=== PATIENT | female | born 1980 | race Caucasian/White ===

== ENCOUNTER → 2017-05-18 | Outpatient (CLI) | payer MEDICAID ==
[~2017-05-18] MED LIST: AMOX500T10 PO; ASPI81TA94 PO; B-12 INJECTION; B1; B6; BIOT10004; CALC-896 PO; CHOL500050 PO; CINN500C12 PO; CIP500 PO; CIPR-344 PO; CLAR-1 PO; CYAN1000 IJ; CYAN1000 IM; DICL-195 PO; DICL100G39 TOP; DICY20TA70 PO; FLUT9.9S; FOLI20CA2 PO; GING1POW MC; HEADACHE MED; HYOS0.1225 PO; IBUP800T37 PO; IRON150C19 PO; KET200 PO; L.AC1CAP6; LEVO50TA86 PO; MELA5TAB21; METR-1 PO; MULT-820 PO; NIT100 PO; NO ROUTINE MEDS; OMEG300C PO; OMEP40CA48 PO; ONDA4TAB PO; OXYC-373 PO; OXYC-865 PO; PANT40TA65 PO; PER PO; PHEN15CA69 PO; PREN-85 PO; PROM-110 PO; PSYL0.5235 PO; SUCR1TAB85 PO; SULF-198 PO; SUMA100T32 PO; TAMS0.4C25 PO; TAMS0.4C70 PO; TETA0.5V12 IM; THIA100T6 PO; THIA250T12 PO; TRAM-420 PO; [UNRECOGNIZED DRUG - CODE] PO
[2017-05-18 09:23] LABS: PLATELET COUNT, AUTOMATED 279 K/uL (150-450)
[2017-05-18 10:53] LABS: LDL CHOLESTEROL 87 mg/dl
== END ==
LOC: LAB 08:46
PROVIDERS: ATTEND Nurse Practitioner Family
DX: E46 Unspecified protein-calorie malnutrition (principal); K91.2 Postsurgical malabsorption, not elsewhere classified; E63.9 Nutritional deficiency, unspecified; Z98.84 Bariatric surgery status
CPT/HCPCS: 36415; 82040; 82247; 82306; 82310; 82374; 82435; 82465; 82565; 82607; 82746; 82947; 83036; 83718; 83970; 84075; 84132; 84155; 84295; 84425; 84443; 84450; 84460; 84478; 84520; 85025

== ENCOUNTER 2017-10-26 15:22 | Emergency (ER) | payer MEDICAID ==
[~2017-10-26 15:22] MED LIST changes: +[UNRECOGNIZED DRUG - REMARK]
--- NOTE | 2017-10-26 15:34 | ER Report ---
History and Physical Time Seen By MD: 15:33 Hx. of Stated Complaint: pt ate lunch and then arounf 1230 started having intense pain throughout abdomen. pt feels nauseous and is dry heaving. pt states she also had a bout of diarrhea. HPI/ROS Pt had turkey meat and lettuce for lunch at noon and immediately afterwards started with abdominal cramping, dry heaving, nausea and diarrhea. Pt denies fevers. Pt states the abdominal pain is severe sharp and crampy. 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 no chest pain. Allergies: Coded Allergies: sumatriptan (Verified Allergy, Intermediate, 03/16/17) adhesive (Verified Allergy, Mild, BLISTERING, 03/16/17) hydrocodone (Verified Adverse Reaction, Mild, VOMITS AND PASSES OUT, 03/16) Home Meds Active Scripts [Dietary Restrictions] No Conflict Check Prov:ADRIAN DEAN APRNP-C 09/13/17 Levothyroxine Sodium (LEVOTHYROXINE SODIUM) 50 Mcg Tablet, 1 TAB PO QDAY, #90 TAB 1 Refill Prov:ADRIAN DEAN APRNP-C 05/27/17 Reported Medications Thiamine Hcl (VITAMIN B-1) 250 Mg Tablet, 1 TAB PO DAILY 04/23/17 Melatonin (Melatonin) 5 Mg Tab.ir.er 03/16/17 Folic Acid (FOLIC ACID) Unknown Strength Capsule, PO, CAPSULE 02/22/17 Psyllium Husk (FIBER) 0.52 Gm Capsule, 0.52 GM PO, CAPSULE 07/02/16 Cinnamon Bark (CINNAMON) 500 Mg Capsule, 500 MG PO, CAPSULE 07/02/16 Shadia Root (SHADIA ROOT) 1 Gm Powder, 1 GM MC 07/02/16 Iron Polysaccharides Complex (POLYSACCHARIDE IRON 150) 150 Mg Capsule, 150 MG PO , CAPSULE 07/02/16 Biotin (Biotin) 1,000 Mcg Tab.chew 10/02/15 Calcium Carb&Cit/Mag12/Vit D3 (CALCIUM 500 MG TABLET) 1 Each Tablet, 2 EACH PO 10/02/15 [B-12 Injection] No Conflict Check 10/02/15 Tyler-3 Fatty Acids (FISH OIL) 300 Mg Capsule, 300 MG PO, CAPSULE 11/05/14 Multivitamin (MULTIVITAMINS) 1 Each Tablet, 1 TAB PO DAILY, TAB 5/26/15 Cholecalciferol (Vitamin D3) (VITAMIN D3) 50,000 Unit Capsule, 89136 UNIT PO QWEEK, CAPSULE 08/21/14 Past Medical/Surgical History Pmhx: migraine, sleep apnea, hyothyroid, nephrolithiasis, uri, strep, h pylori Pshx: emilia, gastric bypass Reviewed Nurses Notes: Yes Old Medical Records Reviewed: Yes Hx Smoking: No Smoking Status: Never Smoker Hx Substance Use Disorder: No Hx Alcohol Use: Yes Constitutional Vital Sign - Last 24 Hours 10/26/17 15:27 Temp 97.4 Pulse 64 Resp 22 B/P (MAP) 150/90 Pulse Ox 100 Physical Exam General Appearance: The patient is alert, has no immediate need for airway protection and no signs of toxicity. Eyes: Pupils equal and round no pallor or injection, EOMI ENT: no pharyngeal erythema or exudates, Mucous membranes are moist Respiratory: There are no retractions, lungs are clear to auscultation. Cardiovascular: Regular rate and rhythm. pulses are equal and symmetrical Gastrointestinal: Abdomen is soft and diffusely tender, no masses, bowel sounds normal, no guarding, no rigidity or rebound Neurological: Cranial nerves II-XII grossly intact, no sensory or motor loss Skin: Warm and dry, no rashes. Musculoskeletal: Neck is supple non tender, no vertebral tenderness Extremities are nontender, non swollen and have full range of motion. DIFFERENTIAL DIAGNOSIS: After history and physical exam differential diagnosis was considered for psbo, sbo, cholitis, gastritis, h pylori, pancreatitis Medical Decision Making Data Points Result Diagram: 10/26/17 1540 10/26/17 1540 Laboratory Hematology Test 10/26/17 15:40 Red Blood Count 4.37 M/uL (4.17-5.56) Mean Corpuscular Volume 90.3 fL (80.0-96.0) Mean Corpuscular Hemoglobin 30.8 pg (26.0-33.0) Mean Corpuscular Hemoglobin Concent 34.1 g/dL (32.0-36.0) Red Cell Distribution Width 13.7 % (11.5-14.5) Mean Platelet Volume 8.7 fL (7.2-11.1) Neutrophils (%) (Auto) 81.5 % (39.4-72.5) Lymphocytes (%) (Auto) 13.4 % (17.6-49.6) Monocytes (%) (Auto) 4.0 % (4.1-12.4) Eosinophils (%) (Auto) 0.4 % (0.4-6.7) Basophils (%) (Auto) 0.7 % (0.3-1.4) Nucleated RBC Relative Count (auto) 0.0 /100WBC Neutrophils # (Auto) 8.7 K/uL (2.0-7.4) Lymphocytes # (Auto) 1.4 K/uL (1.3-3.6) Monocytes # (Auto) 0.4 K/uL (0.3-1.0) Eosinophils # (Auto) 0.0 K/uL (0.0-0.5) Basophils # (Auto) 0.1 K/uL (0.0-0.1) Nucleated RBC Absolute Count (auto) 0.00 K/uL Sodium Level 140 mmol/L (137-145) Potassium Level 3.8 mmol/L (3.5-5.0) Chloride Level 105 mmol/L (98-107) Carbon Dioxide Level 20 mmol/L (22-31) Blood Urea Nitrogen 11 mg/dl (7-18) Creatinine 0.70 mg/dl (0.52-1.04) Glomerular Filtration Rate Calc > 60.0 Random Glucose 99 mg/dl (75-110) Calcium Level 9.8 mg/dl (8.4-10.2) Total Bilirubin 0.3 mg/dl (0.2-1.3) Aspartate Amino Transf (AST/SGOT) 32 U/L (0-35) Alanine Aminotransferase (ALT/SGPT) 47 U/L (0-56) Alkaline Phosphatase 40 U/L (0-126) Total Protein 8.1 g/dl (6.3-8.2) Albumin 4.9 g/dl (3.5-5.0) Lipase 191 U/L (23-300) Human Chorionic Gonadotropin, Qual Negative (NEGATIVE) Helicobacter pylori IgG Antibody Negative (NEGATIVE) Chemistry Test 10/26/17 15:40 White Blood Count 10.7 k/uL (4.5-11.0) Red Blood Count 4.37 M/uL (4.17-5.56) Hemoglobin 13.5 g/dL (12.0-16.0) Hematocrit 39.5 % (34.0-47.0) Mean Corpuscular Volume 90.3 fL (80.0-96.0) Mean Corpuscular Hemoglobin 30.8 pg (26.0-33.0) Mean Corpuscular Hemoglobin Concent 34.1 g/dL (32.0-36.0) Red Cell Distribution Width 13.7 % (11.5-14.5) Platelet Count 276 K/uL (150-450) Mean Platelet Volume 8.7 fL (7.2-11.1) Neutrophils (%) (Auto) 81.5 % (39.4-72.5) Lymphocytes (%) (Auto) 13.4 % (17.6-49.6) Monocytes (%) (Auto) 4.0 % (4.1-12.4) Eosinophils (%) (Auto) 0.4 % (0.4-6.7) Basophils (%) (Auto) 0.7 % (0.3-1.4) Nucleated RBC Relative Count (auto) 0.0 /100WBC Neutrophils # (Auto) 8.7 K/uL (2.0-7.4) Lymphocytes # (Auto) 1.4 K/uL (1.3-3.6) Monocytes # (Auto) 0.4 K/uL (0.3-1.0) Eosinophils # (Auto) 0.0 K/uL (0.0-0.5) Basophils # (Auto) 0.1 K/uL (0.0-0.1) Nucleated RBC Absolute Count (auto) 0.00 K/uL Glomerular Filtration Rate Calc > 60.0 Calcium Level 9.8 mg/dl (8.4-10.2) Total Bilirubin 0.3 mg/dl (0.2-1.3) Aspartate Amino Transf (AST/SGOT) 32 U/L (0-35) Alanine Aminotransferase (ALT/SGPT) 47 U/L (0-56) Alkaline Phosphatase 40 U/L (0-126) Total Protein 8.1 g/dl (6.3-8.2) Albumin 4.9 g/dl (3.5-5.0) Lipase 191 U/L (23-300) Human Chorionic Gonadotropin, Qual Negative (NEGATIVE) Helicobacter pylori IgG Antibody Negative (NEGATIVE) EKG/Imaging Imaging ileus ED Course/Re-evaluation Clinical Indication for ER IV: Hydration, IV Access ED Course 10/26/2017 4:40:00 pm Pts labs jon stable. Pts nausea improved. Pt still feels some abdominal diffuse "pressure" but its improved. awaiting ct results. 10/26/2017 5:43:[address] is suggestive of ileus. I reviewed images with Dr. rodriguez, surgeon senior health consultant, who recommends clear liquid diet for 24 hours and advance to bland as tolerated. Pt feels comfortable with [facility] plan of going home. Did offer admission but would like to try to rest at home. Decision to Disposition Date: Oct 26, 2017 Decision to Disposition Time: 17:44 Depart Departure Latest Vital Signs Vital Signs Date Time Temp Pulse Resp B/P (MAP) Pulse Ox O2 Delivery O2 Flow Rate FiO2 10/26/17 15:27 97.4 64 22 150/90 100 Impression: Primary Impression: Enteritis Additional Impressions: Abdominal pain Ileus Condition: Improved Disposition: HOME OR SELF-CARE Referrals: ADRIAN DEAN APRN BLOOD DONOR UNIT ASSISTANT-C (PCP) 2 Days JOSÉ MIGUEL RODRIGUEZ MD New Scripts Ondansetron (ZOFRAN ODT) 4 Mg Tab.rapdis 4 MG PO Q6-8H Y for NAUSEA/VOMITING, #15 TAB.BRIEN Prov: SUHAILORA,ADIS V DO 10/26/17 Dicyclomine Hcl (DICYCLOMINE HCL) 10 Mg Capsule 10 MG PO Q6H Y for CRAMPING, #21 CAPSULE Prov: LAURORA,ADIS V DO 10/26/17 Oxycodone Hcl/Acetaminophen (OXYCODONE-ACETAMINOPHEN 5-325) 1 Each Tablet 1 EACH PO Q4-6H Y for PAIN, #10 TAB Prov: LAURORA,ADIS V DO 10/26/17 Patient Instructions: Ileus (GEN) Additional Instructions: Your labs today were stable. Your cat scan today shows an ileus. Recommend bowel rest. Clear liquid diet for next 24 hours (water, jello, broth) then advance as tolerated. Follow up with Dr. Rodriguez. Return if symtoms worsen. Zofran one every 6 hours as needed for nausea. perocet one every 6 hours as needed for severe pain. Bentyl one every 6 hours as needed for abdominal cramping. Problem Qualifiers Additional Impressions: Abdominal pain Abdominal location: generalized Qualified Codes: R10.84 - Generalized abdominal pain ADIS TRAN DO Oct 26, 2017 15:34
[2017-10-26] MEDS ORDERED: ONDANSETRON 4 MG/2 ML VIAL IVP ONE (15:35)
[2017-10-26] MEDS ORDERED: NS(*) 0.9% 1000 ML BAG 1,000 ML IR ONE (15:35)
[2017-10-26] MEDS ORDERED: MORPHINE 4 MG/ML SDV IVP ONE (15:40)
[2017-10-26] MEDS ORDERED: PANTOPRAZOLE SOD 40 MG IV VIAL IVP ONE (15:40)
[2017-10-26 15:56] LABS: PLATELET COUNT, AUTOMATED 276 K/uL (150-450)
[2017-10-26] MEDS ORDERED: IOPAMIDOL 76% 100 ML INFUS BTL 100 ML ONE (15:59)
--- NOTE | 2017-10-26 17:18 | RADIOLOGY IMAGING REPORT ---
FACILITY: [facility] PATIENT NAME: Darleen Campos : 1980 MR: [id number] V: [id number] EXAM DATE: ORDERING PHYSICIAN: ADIS TRAN TECHNOLOGIST: Location: [facility] - [place], [place] Patient: Darleen Campos : 1980 Visit/Account:[id number] Date of Sevice: 10/26/2017 EXAMINATION: CT abdomen and pelvis with IV contrast HISTORY: Abdominal pain. History of gastric bypass. TECHNIQUE: Axial CT images of the abdomen and pelvis were obtained with IV contrast, with coronal a nd sagittal 2D reconstructed images. One of the following dose optimization techniques was utilized in the performance of this exam: Autom ated exposure control; adjustment of the mA and/or kV according to the patient's size; or use of an i terative reconstruction technique. Specific details can be referenced in the facility's radiology C T exam operational policy. Contrast: 75 mL of IV [id number]. COMPARISON: 03/11/2017. FINDINGS: Liver: Negative. Gallbladder and bile ducts: Cholecystectomy. No bile duct dilatation. Spleen: Negative. Pancreas: Negative. Adrenal glands: Negative. Kidneys: Negative. No hydronephrosis or urinary calculi. Bowel and peritoneum: There is dilatation of the right and transverse colon, containing liquid stool and air-fluid levels. The colon measures 10.5 cm at the cecum, 6 cm at the hepatic flexure, 6.5 cm a long the mid transverse colon. The left colon is air-filled and normal in caliber measuring 3.8 cm. A ir extends distally to the rectum, without evidence of any mechanical cause of obstruction. No coloni c wall thickening. There is additional mild dilatation of small bowel loops in the lower abdomen and pelvis, with air-fluid levels. Surgical changes of gastric bypass. The appendix is visualized and is retrocecal in position, located posteriorly to the distended cecum and right colon. The appendix measures slightly larger at 8 mm, but is partially air-filled and witho ut any definite wall thickening. There is a small sliver of free fluid adjacent to the posterior aspe ct of the right colon, partially abutting the appendix. Trace amount of free fluid in the pelvis. No free intraperitoneal air. Pelvic structures: Negative. Lymph node assessment: Negative. Vessels: Negative. Musculoskeletal: Negative. Body wall: Negative. Lung bases: Negative. IMPRESSION: 1. There is dilatation of the right and transverse colon containing air and liquid stool. There is ad ditional air present throughout the nondilated left colon, with air extending distally to the rectum. No evidence of any mechanical cause of obstruction. There is additional mild dilatation of small bow el loops in the lower abdomen and pelvis with air-fluid levels. CT appearance favors an ileus which c ould relate to an underlying enteritis. 2. The retrocecal appendix is enlarged by size criteria but is air-filled and without definite wall t hickening. A primary appendicitis is considered unlikely and mild dilatation may relate to a generali zed ileus. Correlate clinically. 3. Trace amount of nonspecific free fluid along the right paracolic gutter. 4. Surgical changes of gastric bypass, with an unremarkable CT appearance. Prior cholecystectomy. Report Dictated By: Jesus Alonso MD at 10/26/2017 4:46 PM Report E-Signed By: Jesus Alonso MD at 10/26/2017 5:14 PM WSN:[id number]
[2017-10-26] MEDS ORDERED: DICYCLOMINE HCL 10 MG CAP PO ONE (17:25)
[2017-10-26] MEDS ORDERED: OXYC-373 PO (17:48)
[2017-10-26] MEDS ORDERED: DICY10CA11 PO (17:48)
[2017-10-26] MEDS ORDERED: ONDA4TAB PO (17:51)
[2017-10-26 18:00] VITALS: BP 121/78
== END 2017-10-26 18:09 | disposition home or self-care (01) ==
LOC: ER 15:31
DX: K52.9 Noninfective gastroenteritis and colitis, unspecified (principal); K56.7 Ileus, unspecified
CPT/HCPCS: 74177; 83690; 84443; 84703; 85025; 86677; 96361; 96374; 96375; 99284; C9113; J2270; J2405; J7030; Q9967; 82040; 82247; 82310; 82374; 82435; 82565; 82947; 84075; 84132; 84155; 84295; 84450; 84460; 84520

== ENCOUNTER 2017-10-29 13:11 | Emergency (ER) | payer MEDICAID ==
[~2017-10-29 13:11] MED LIST changes: +DICY10CA11 PO
[2017-10-29 14:57] LABS: PLATELET COUNT, AUTOMATED 217 K/uL (150-450)
[2017-10-29] MEDS ORDERED: ONDANSETRON 4 MG/2 ML VIAL IVP ONE (15:45)
[2017-10-29] MEDS ORDERED: NS(*) 0.9% 1000 ML BAG 1,000 ML IV ONE (15:45)
[2017-10-29] MEDS ORDERED: IOPAMIDOL 76% 100 ML INFUS BTL 100 ML ONE (15:59)
[2017-10-29] MEDS ORDERED: DIATRIZOATE MEGL/DIATRIZOA SOD 367 MG/ML SOLN ONE (16:09)
[2017-10-29] MEDS ORDERED: MORPHINE 4 MG/ML SDV IVP ONE (16:40)
--- NOTE | 2017-10-29 17:49 | ER Report ---
History and Physical Time Seen By MD: 13:20 Hx. of Stated Complaint: DIFFUSE ABDOMINAL PAIN, NO BM SINCE WEDNESDAY (ERAN PEDRAZA MD) HPI/ROS 37-year-old female with a history of gastric bypass surgery 4 years ago. She presented to the emergency department earlier this week complaining of mid epigastric abdominal pain and nausea and vomiting. A CT scan was obtained at that time which showed a possible ileus. The recommendation was to place her on a clear liquid diet and advance as tolerated. The patient states she has been following instructions but her pain has worsened and now she is unable to take any by mouth. She denies fever chills. She states that when she had H. pylori at 1. she had similar pain but states that this pain is worse and also more diffuse in her abdomen. She says was a cholecystectomy. No hematemesis or hematochezia. She has no other complaints. Remainder of the 14 system rev: Yes (ERAN PEDRAZA MD) Allergies: Coded Allergies: sumatriptan (Verified Allergy, Intermediate, 03/16/17) adhesive (Verified Allergy, Mild, BLISTERING, 03/16/17) hydrocodone (Verified Adverse Reaction, Mild, VOMITS AND PASSES OUT, 03/16) Home Meds Active Scripts Promethazine Hcl (PROMETHAZINE HCL) 25 Mg Tablet, 25 MG PO Q8H Y for NAUSEA/ VOMITING, #20 TAB 0 Refills Prov:FELICITAS CUI MD 10/29/17 Oxycodone Hcl/Acetaminophen (PERCOCET 5-325 MG TABLET) 1 Each Tablet, 1 EACH PO Q4H Y for PAIN, #16 TAB 0 Refills Prov:FELICITAS CUI MD 10/29/17 Dicyclomine Hcl (DICYCLOMINE HCL) 10 Mg Capsule, 10 MG PO Q6H Y for CRAMPING, # 21 CAPSULE Prov:ADIS TRAN V DO 10/26/17 Oxycodone Hcl/Acetaminophen (OXYCODONE-ACETAMINOPHEN 5-325) 1 Each Tablet, 1 EACH PO Q4-6H Y for PAIN, #10 TAB Prov:ADIS TRAN DO 10/26/17 [Dietary Restrictions] No Conflict Check Prov:ADRIAN DEAN APRN MATERIALS SCHEDULER-C 09/13/17 Levothyroxine Sodium (LEVOTHYROXINE SODIUM) 50 Mcg Tablet, 1 TAB PO QDAY, #90 TAB 1 Refill Prov:JERMAINEADRIAN SHEILA MATERIALS SCHEDULER-C 05/27/17 Reported Medications Thiamine Hcl (VITAMIN B-1) 250 Mg Tablet, 1 TAB PO DAILY 04/23/17 Melatonin (Melatonin) 5 Mg Tab.ir.er 03/16/17 Folic Acid (FOLIC ACID) Unknown Strength Capsule, PO, CAPSULE 02/22/17 Psyllium Husk (FIBER) 0.52 Gm Capsule, 0.52 GM PO, CAPSULE 07/02/16 Cinnamon Bark (CINNAMON) 500 Mg Capsule, 500 MG PO, CAPSULE 07/02/16 Shadia Root (SHADIA ROOT) 1 Gm Powder, 1 GM MC 07/02/16 Iron Polysaccharides Complex (POLYSACCHARIDE IRON 150) 150 Mg Capsule, 150 MG PO , CAPSULE 07/02/16 Biotin (Biotin) 1,000 Mcg Tab.chew 10/02/15 Calcium Carb&Cit/Mag12/Vit D3 (CALCIUM 500 MG TABLET) 1 Each Tablet, 2 EACH PO 10/02/15 [B-12 Injection] No Conflict Check 10/02/15 [place]-3 Fatty Acids (FISH OIL) 300 Mg Capsule, 300 MG PO, CAPSULE 11/05/14 Multivitamin (MULTIVITAMINS) 1 Each Tablet, 1 TAB PO DAILY, TAB 08/21/14 Cholecalciferol (Vitamin D3) (VITAMIN D3) 50,000 Unit Capsule, 81287 UNIT PO QWEEK, CAPSULE 08/21/14 Discontinued Scripts Ondansetron (ZOFRAN ODT) 4 Mg Tab.rapdis, 4 MG PO Q6-8H Y for NAUSEA/VOMITING, # 15 TAB.BRIEN Prov:ADIS TRAN DO 10/26/17 Reviewed Nurses Notes: Yes Old Medical Records Reviewed: Yes (ERAN PEDRAZA MD) Hx Smoking: No Smoking Status: Never Smoker Hx Substance Use Disorder: No Hx Alcohol Use: Yes (ERAN PEDRAZA MD) Constitutional Vital Sign - Last 24 Hours 10/29/17 10/29/17 10/29/17 10/29/17 13:19 13:22 13:26 13:30 Temp 97.6 Pulse 56 56 Resp 16 B/P (MAP) 129/85 129/85 (100) 106/70 (82) Pulse Ox 95 93 O2 Delivery Room Air 10/29/17 10/29/17 10/29/17 10/29/17 13:41 13:56 14:00 14:11 Pulse 58 59 58 B/P (MAP) 114/78 (90) Pulse Ox 93 93 92 10/29/17 10/29/17 10/29/17 10/29/17 14:26 14:30 14:41 14:56 Pulse 58 ? B/P (MAP) 115/83 (94) Pulse Ox 94 10/29/17 10/29/17 10/29/17 10/29/17 15:00 15:15 15:30 15:45 Pulse ? B/P (MAP) ???/??? (5) ???/??? (1664) 10/29/17 10/29/17 10/29/17 10/29/17 15:46 16:00 16:15 16:30 Pulse 47 53 49 B/P (MAP) 110/66 (81) 135/89 (104) 135/75 (95) Pulse Ox 95 87 97 10/29/17 10/29/17 10/29/17 10/29/17 16:45 17:00 17:03 17:15 Pulse ??? 50 52 B/P (MAP) 122/76 (91) Pulse Ox 93 95 91 10/29/17 10/29/17 10/29/17 10/29/17 17:30 17:45 18:00 18:15 Pulse ??? 51 48 54 B/P (MAP) ???/??? (1665) 114/73 (87) Pulse Ox 98 93 90 10/29/17 10/29/17 10/29/17 18:30 18:45 19:00 Pulse 51 54 52 B/P (MAP) 117/77 (90) 114/76 (89) Pulse Ox 92 91 92 (FELICITAS CUI MD) Physical Exam General Appearance: The patient is alert, has no immediate need for airway protection and no current signs of toxicity. Eyes: Pupils equal and round no injection. Respiratory: Chest is non tender, lungs are clear to auscultation. Cardiac: regular rate and rhythm Gastrointestinal: Abdomen is soft with TTP of the midepigastric, RUQ and LUQ regions Neck: Neck is supple and non tender. Extremities have full range of motion and are non tender. Skin: No rashes or lesions. DIFFERENTIAL DIAGNOSIS: After history and physical exam differential diagnosis was considered for abdominal pain including but not limited to appendicitis, competitions of gastric bypass surgery, gastritis and urinary tract infection. (ERAN PEDRAZA MD) Medical Decision Making Data Points Result Diagram: 10/29/17 1442 10/29/17 1442 Laboratory Hematology Test 10/29/17 13:20 10/29/17 14:42 Urine Color Straw Urine Clarity Clear Urine pH 7.0 pH (4.8-9.5) Urine Specific [place] 1.003 Urine Protein Negative mg/dL (NEGATIVE) Urine Glucose (UA) Negative mg/dL (NEGATIVE) Urine Ketones Negative mg/dL (NEGATIVE) Urine Blood Large (NEGATIVE) Urine Nitrite Negative (NEGATIVE) Urine Bilirubin Negative (NEGATIVE) Urine Urobilinogen Negative mg/dL (0.2-1.9) Urine Leukocyte Esterase Negative (NEGATIVE) Urine RBC 10 /HPF (0-2/HPF) Urine WBC 2 /HPF (0-5/HPF) Urine Squamous Epithelial Cells Few /LPF (</=FEW) Urine Bacteria Negative /HPF (NONE-FEW) Urine Mucus None /HPF (NONE-FEW) Red Blood Count 3.58 M/uL (4.17-5.56) Mean Corpuscular Volume 90.9 fL (80.0-96.0) Mean Corpuscular Hemoglobin 30.9 pg (26.0-33.0) Mean Corpuscular Hemoglobin Concent 34.0 g/dL (32.0-36.0) Red Cell Distribution Width 13.7 % (11.5-14.5) Mean Platelet Volume 8.5 fL (7.2-11.1) Neutrophils (%) (Auto) 51.0 % (39.4-72.5) Lymphocytes (%) (Auto) 39.1 % (17.6-49.6) Monocytes (%) (Auto) 7.1 % (4.1-12.4) Eosinophils (%) (Auto) 1.9 % (0.4-6.7) Basophils (%) (Auto) 0.9 % (0.3-1.4) Nucleated RBC Relative Count (auto) 0.0 /100WBC Neutrophils # (Auto) 2.3 K/uL (2.0-7.4) Lymphocytes # (Auto) 1.8 K/uL (1.3-3.6) Monocytes # (Auto) 0.3 K/uL (0.3-1.0) Eosinophils # (Auto) 0.1 K/uL (0.0-0.5) Basophils # (Auto) 0.0 K/uL (0.0-0.1) Nucleated RBC Absolute Count (auto) 0.00 K/uL Sodium Level 141 mmol/L (137-145) Potassium Level 4.0 mmol/L (3.5-5.0) Chloride Level 108 mmol/L (98-107) Carbon Dioxide Level 25 mmol/L (22-31) Blood Urea Nitrogen 9 mg/dl (7-18) Creatinine 0.60 mg/dl (0.52-1.04) Glomerular Filtration Rate Calc > 60.0 Random Glucose 83 mg/dl (75-110) Calcium Level 8.6 mg/dl (8.4-10.2) Total Bilirubin 0.2 mg/dl (0.2-1.3) Aspartate Amino Transf (AST/SGOT) 33 U/L (0-35) Alanine Aminotransferase (ALT/SGPT) 39 U/L (0-56) Alkaline Phosphatase 34 U/L (0-126) Total Protein 6.2 g/dl (6.3-8.2) Albumin 3.7 g/dl (3.5-5.0) Human Chorionic Gonadotropin, Qual Negative (NEGATIVE) Chemistry Test 10/29/17 13:20 10/29/17 14:42 Urine Color Straw Urine Clarity Clear Urine pH 7.0 pH (4.8-9.5) Urine Specific [place] 1.003 Urine Protein Negative mg/dL (NEGATIVE) Urine Glucose (UA) Negative mg/dL (NEGATIVE) Urine Ketones Negative mg/dL (NEGATIVE) Urine Blood Large (NEGATIVE) Urine Nitrite Negative (NEGATIVE) Urine Bilirubin Negative (NEGATIVE) Urine Urobilinogen Negative mg/dL (0.2-1.9) Urine Leukocyte Esterase Negative (NEGATIVE) Urine RBC 10 /HPF (0-2/HPF) Urine WBC 2 /HPF (0-5/HPF) Urine Squamous Epithelial Cells Few /LPF (</=FEW) Urine Bacteria Negative /HPF (NONE-FEW) Urine Mucus None /HPF (NONE-FEW) White Blood Count 4.6 k/uL (4.5-11.0) Red Blood Count 3.58 M/uL (4.17-5.56) Hemoglobin 11.1 g/dL (12.0-16.0) Hematocrit 32.5 % (34.0-47.0) Mean Corpuscular Volume 90.9 fL (80.0-96.0) Mean Corpuscular Hemoglobin 30.9 pg (26.0-33.0) Mean Corpuscular Hemoglobin Concent 34.0 g/dL (32.0-36.0) Red Cell Distribution Width 13.7 % (11.5-14.5) Platelet Count 217 K/uL (150-450) Mean Platelet Volume 8.5 fL (7.2-11.1) Neutrophils (%) (Auto) 51.0 % (39.4-72.5) Lymphocytes (%) (Auto) 39.1 % (17.6-49.6) Monocytes (%) (Auto) 7.1 % (4.1-12.4) Eosinophils (%) (Auto) 1.9 % (0.4-6.7) Basophils (%) (Auto) 0.9 % (0.3-1.4) Nucleated RBC Relative Count (auto) 0.0 /100WBC Neutrophils # (Auto) 2.3 K/uL (2.0-7.4) Lymphocytes # (Auto) 1.8 K/uL (1.3-3.6) Monocytes # (Auto) 0.3 K/uL (0.3-1.0) Eosinophils # (Auto) 0.1 K/uL (0.0-0.5) Basophils # (Auto) 0.0 K/uL (0.0-0.1) Nucleated RBC Absolute Count (auto) 0.00 K/uL Glomerular Filtration Rate Calc > 60.0 Calcium Level 8.6 mg/dl (8.4-10.2) Total Bilirubin 0.2 mg/dl (0.2-1.3) Aspartate Amino Transf (AST/SGOT) 33 U/L (0-35) Alanine Aminotransferase (ALT/SGPT) 39 U/L (0-56) Alkaline Phosphatase 34 U/L (0-126) Total Protein 6.2 g/dl (6.3-8.2) Albumin 3.7 g/dl (3.5-5.0) Human Chorionic Gonadotropin, Qual Negative (NEGATIVE) Urinalysis Test 10/29/17 13:20 Urine Color Straw Urine Clarity Clear Urine pH 7.0 pH (4.8-9.5) Urine Specific [place] 1.003 Urine Protein Negative mg/dL (NEGATIVE) Urine Glucose (UA) Negative mg/dL (NEGATIVE) Urine Ketones Negative mg/dL (NEGATIVE) Urine Blood Large (NEGATIVE) Urine Nitrite Negative (NEGATIVE) Urine Bilirubin Negative (NEGATIVE) Urine Urobilinogen Negative mg/dL (0.2-1.9) Urine Leukocyte Esterase Negative (NEGATIVE) Urine RBC 10 /HPF (0-2/HPF) Urine WBC 2 /HPF (0-5/HPF) Urine Squamous Epithelial Cells Few /LPF (</=FEW) Urine Bacteria Negative /HPF (NONE-FEW) Urine Mucus None /HPF (NONE-FEW) (FELICITAS UCI MD) EKG/Imaging Imaging COMPUTED TOMOGRAPHY OF THE Abdomen and Pelvis with CONTRAST INDICATION: Worsened midepigastric pain after gastric bypass. TECHNIQUE: Contiguous axial 3.[address] images were obtained through the abdomen and pelvis after 85 cc Isovue-[id number]. Coronal and sagittal reformatted images were submitted. COMPARISON: CT October 26, 2017. FINDINGS: Lung bases: Mild dependent atelectasis. Liver and hepatic vasculature: The liver parenchyma is suboptimally opacified. There is mild fatty infiltration adjacent to falciform. Gallbladder and bile ducts: Surgically absent gallbladder. Mild prominence of the common bile duct in keeping with cholecystectomy. There is also mild nonspecific periportal edema. Spleen: Normal Pancreas: Normal Adrenals: Normal Kidneys, ureters and bladder: No hydronephrosis or collecting system obstruction. Incompletely filled bladder. Retroperitoneum and aorta: Normal caliber aorta. GI tract, mesentery and peritoneum: Normal appendix. There is post surgical change from gastric bypass. No discrete fluid collection. No evidence of leak. No bowel obstruction. Uterus and adnexa: The uterus is grossly unremarkable. Small volume of fluid in the cul-de-sac is simple appearing. This is likely physiologic. Bones and soft tissues: No acute osseous abnormality. Mild subcutaneous sarcoma. IMPRESSION: 1. Status post gastric bypass without evidence of leak. 2. Nonspecific periportal edema. In conjunction with mild anasarca, mild postoperative fluid overload is probably most likely. One of the following dose optimization techniques was utilized in the performance of this exam: Automated exposure control; adjustment of the mA and/ or kV according to the patient's size; or use of an iterative reconstruction technique. Specific details can be referenced in the facility's radiology CT exam operational policy. Report Dictated By: Ron Cruz MD at 10/29/2017 6:00 PM (FELICITAS CUI MD) ED Course/Re-evaluation ED Course 37-year-old female status post gastric bypass surgery. He was seen earlier in the week for abdominal pain and diagnosed with an ileus. She is followed the directions for clear liquid diet and in spite of that her pain and nausea is worsening. She has an in ability to take by mouth at this time. I'm concerned that given her gastric bypass surgery she could have an internal hernia or a leak at the anastomosis of the esophageal junction. She had a repeat CT scan completed with PO contrast. The results of the CAT scan pending at this time. I' m turning over the patient to Dr. Cui pending results of the CT scan. (ERAN PEDRAZA MD) ED Course I reviewed this patient with Dr. Pedraza at sign-out at shift change and assumed care of the patient. The patient has diffuse abdominal pain with worsening over the last week, had been seen here and diagnosed with possible ileus, told to use a clear liquid diet and advance as tolerated however pain has been worsening. She does have a history of gastric bypass surgery 4 years ago. Labs show normal white count, normal platelets, slightly low H&H. Metabolic panel is normal, urinalysis shows large blood on the dipstick, microscopic shows 10 red cells, 2 white cells, negative bacteria and few squamous epithelial cells. Negative nitrites and leukocyte esterase. CT scan of the abdomen and pelvis with oral contrast was obtained, and negative. Reviewed these results with the patient. Appears that she likely has a urinary tract infection and a urine culture was ordered. Use of home medicine for pain and nausea and follow up with Dr. Velasquez. Decision to Disposition Date: Oct 29, 2017 Decision to Disposition Time: 19:33 (FELICITAS CUI MD) Depart Departure Latest Vital Signs Vital Signs Date Time Temp Pulse Resp B/P (MAP) Pulse Ox O2 Delivery O2 Flow Rate FiO2 10/29/17 19:00 52 114/76 (89) 92 10/29/17 13:19 97.6 16 Room Air (FELICITAS CUI MD) Impression: Primary Impression: Abdominal pain Additional Impression: Urinary tract infection Condition: Improved Disposition: HOME OR SELF-CARE Referrals: ADRIAN DEAN APRN MATERIALS SCHEDULER-C (PCP) New Scripts Promethazine Hcl (PROMETHAZINE HCL) 25 Mg Tablet 25 MG PO Q8H Y for NAUSEA/VOMITING, #20 TAB 0 Refills Prov: FELICITAS CUI MD 10/29/17 Oxycodone Hcl/Acetaminophen (PERCOCET 5-325 MG TABLET) 1 Each Tablet 1 EACH PO Q4H Y for PAIN, #16 TAB 0 Refills Prov: FELICITAS CUI MD 10/29/17 Patient Instructions: Abdominal Pain (ED), Urinary Tract Infection in Women (ED ) Additional Instructions: Take Phenergan 25mg, one every 8 hours as needed for nausea. Take Percocet 5/325, one every 4 hours as needed for pain. You can also use Zofran as needed for nausea as previously instructed. Call Dr. Sheffield's office on Wednesday to schedule an appointment. Problem Qualifiers Primary Impression: Abdominal pain Abdominal location: generalized Qualified Codes: R10.84 - Generalized abdominal pain Additional Impression: Urinary tract infection Urinary tract infection type: acute cystitis Hematuria presence: without hematuria Qualified Codes: N30.00 - Acute cystitis without hematuria ERAN PEDRAZA MD Oct 29, 2017 17:49 FELICITAS CUI MD Oct 29, 2017 18:40
--- NOTE | 2017-10-29 18:19 | RADIOLOGY IMAGING REPORT ---
FAC[place] [facility] [place] NAME: Darleen Campos : 1980 MR: [id number] V: [id number] EXAM DATE: ORDERING PHYSICIAN: ERAN PEDRAZA TECHNOLOGIST: [place] [facility] [place] : 1980 Visit/Account:[id number] Date of Sevice: 10/29/2017 COMPUTED TOMOGRAPHY OF THE Abdomen and Pelvis with CONTRAST INDICATION: Worsened midepigastric pain after gastric bypass. TECHNIQUE: Contiguous axial 3.[address] images were obtained through the abdomen and pelvis after 85 c c Isovue-370. Coronal and sagittal reformatted images were submitted. COMPARISON: CT October 26, 2017. FINDINGS: Lung bases: Mild dependent atelectasis. Liver and hepatic vasculature: The liver parenchyma is suboptimally opacified. There is mild fatty i nfiltration adjacent to falciform. Gallbladder and bile ducts: Surgically absent gallbladder. Mild prominence of the common bile duct i n keeping with cholecystectomy. There is also mild nonspecific periportal edema. Spleen: Normal Pancreas: Normal Adrenals: Normal Kidneys, ureters and bladder: No hydronephrosis or collecting system obstruction. Incompletely fille d bladder. Retroperitoneum and aorta: Normal caliber aorta. GI tract, mesentery and peritoneum: Normal appendix. There is post surgical change from gastric bypas s. No discrete fluid collection. No evidence of leak. No bowel obstruction. Uterus and adnexa: The uterus is grossly unremarkable. Small volume of fluid in the cul-de-sac is sim ple appearing. This is likely physiologic. Bones and soft tissues: No acute osseous abnormality. Mild subcutaneous sarcoma. IMPRESSION: 1. Status post gastric bypass without evidence of leak. 2. Nonspecific periportal edema. In conjunction with mild anasarca, mild postoperative fluid overload is probably most likely. One of the following dose optimization techniques was utilized in the performance of this exam: Autom ated exposure control; adjustment of the mA and/or kV according to the patient's size; or use of an i terative reconstruction technique. Specific details can be referenced in the facility's radiology C T exam operational policy. Report Dictated By: Ron Cruz MD at 10/29/2017 6:00 PM Report E-Signed By: Ron Cruz MD at 10/29/2017 6:16 PM WSN:[id number]
[2017-10-29 19:00] VITALS: BP 114/76
[2017-10-29] MEDS ORDERED: PROMETHAZINE HCL 25 MG TAB TH 2 TAB/BOTTLE PO ONE (19:35)
[2017-10-29] MEDS ORDERED: PROM-110 PO (19:36)
[2017-10-29] MEDS ORDERED: OXYC-865 PO (19:36)
[2017-11-02] MEDS ORDERED: PANT40TA65 PO (15:13)
[2017-11-02] MEDS ORDERED: SUCR1TAB85 PO (15:13)
== END 2017-10-29 19:58 | disposition home or self-care (01) ==
LOC: ER 13:24
DX: R10.84 Generalized abdominal pain (principal); N30.00 Acute cystitis without hematuria; Z98.84 Bariatric surgery status
CPT/HCPCS: 74177; 81001; 84703; 85025; 96361; 96374; 96375; 99284; J2270; J2405; J7030; Q9967; 82040; 82247; 82310; 82374; 82435; 82565; 82947; 84075; 84132; 84155; 84295; 84450; 84460; 84520

== ENCOUNTER 2017-11-15 14:18 | Emergency (ER) | payer MEDICAID ==
--- NOTE | 2017-11-15 14:19 | ER Report ---
History and Physical Time Seen By MD: 14:19 (YUMIKO MASON MD) HPI/ROS CHIEF COMPLAINT: Abdominal pain HISTORY OF PRESENT ILLNESS:Patient is a 37-year-old female who has had multiple visits in the last month for severe upper abdominal pain. She has a history of her Russell-en-Y divided gastric bypass with a history of H. pylori that has been treated. He was recently seen in follow-up on 11/02/[address] Velasquez for the symptoms. His note from that visit was reviewed. Patient had been taking Percocet for pain. At that time she had not been on dicyclomine or PPI. Dr. Velasquez has done endoscopy on this patient and had found no abnormal pathology at that time. He did state that a marginal ulcer was a possibility. As well as recurring H. pylori infection although he stated that they would not have access to the main body of her stomach due to the gastric bypass surgery. His recommendation at that time was to start pantoprazole 40 mg once a day and Carafate 1 g before meals to see if this will help her symptoms. He was going to follow her up in the next 2-3 weeks and if not improving he planned on repeat endoscopy. Patient states that she had been taking the Carafate and Protonix as directed and did get some relief however over the weekend this was no longer effective. She does note that the pain is worse with meals. She denies any fevers or chills. She reports normal bowel movements without blood or tarry stools. She denies any dysuria. Anus primarily located in the epigastric region and is severe in intensity. There is associated nausea. REVIEW OF SYSTEMS: Constitutional: No fever, no chills. Eyes: No discharge. ENT: No sore throat. Cardiovascular: No chest pain, no palpitations. Respiratory: No cough, no shortness of breath. Gastrointestinal: Severe epigastric abdominal pain with nausea, no vomiting or diarrhea. No hematochezia and no melena Genitourinary: No hematuria. Musculoskeletal: No back pain. Skin: No rashes. Neurological: No headache. (YUMIKO MASON MD) Allergies: Coded Allergies: sumatriptan (Verified Allergy, Intermediate, 11/15/17) adhesive (Verified Allergy, Mild, BLISTERING, 11/15/17) hydrocodone (Verified Adverse Reaction, Mild, VOMITS AND PASSES OUT, ) Home Meds Active Scripts Oxycodone Hcl/Acetaminophen (OXYCODONE-ACETAMINOPHEN 5-325) 1 Each Tablet, 1 EACH PO Q4-6H Y for PAIN, #20 TAB Prov:CHELSEAADIS Randi PICKETT 11/15/17 Sucralfate (CARAFATE) 1 Gm Tablet, 1 TAB PO TID, #100 TAB 3 Refills Take 1 tablet 30 minutes before eating Prov:JOSÉ MIGUEL RODRIGUEZ MD 11/02/17 Pantoprazole Sodium (PANTOPRAZOLE SODIUM) 40 Mg Tablet.dr, 1 TAB PO DAILY, #30 TAB 3 Refills Prov:JOSÉ MIGUEL RODRIGUEZ MD 11/02/17 Promethazine Hcl (PROMETHAZINE HCL) 25 Mg Tablet, 25 MG PO Q8H Y for NAUSEA/ VOMITING, #20 TAB 0 Refills Prov:FELICITAS IVERSON MD 10/29/17 [Dietary Restrictions] No Conflict Check Prov:ADRIAN DEAN APRN 09/13/17 Levothyroxine Sodium (LEVOTHYROXINE SODIUM) 50 Mcg Tablet, 1 TAB PO QDAY, #90 TAB 1 Refill Prov:ADRIAN DEAN APRN 05/27/17 Reported Medications Cholecalciferol (Vitamin D3) (VITAMIN D3) 1,000 Unit Tablet, 1000 UNIT PO BID, TAB 11/15/17 Thiamine Hcl (VITAMIN B-1) 250 Mg Tablet, 1 TAB PO DAILY 04/23/17 Melatonin (Melatonin) 5 Mg Tab.ir.er 03/16/17 Folic Acid (FOLIC ACID) Unknown Strength Capsule, PO, CAPSULE 02/22/17 Psyllium Husk (FIBER) 0.52 Gm Capsule, 0.52 GM PO, CAPSULE 07/02/16 Cinnamon Bark (CINNAMON) 500 Mg Capsule, 500 MG PO, CAPSULE 07/02/16 Shadia Root (SHADIA ROOT) 1 Gm Powder, 1 GM MC 07/02/16 Iron Polysaccharides Complex (POLYSACCHARIDE IRON 150) 150 Mg Capsule, 150 MG PO , CAPSULE 07/02/16 Biotin (Biotin) 1,000 Mcg Tab.chew 10/02/15 Calcium Carb&Cit/Mag12/Vit D3 (CALCIUM 500 MG TABLET) 1 Each Tablet, 2 EACH PO 10/02/15 [B-12 Injection] No Conflict Check 10/02/15 Haddock-3 Fatty Acids (FISH OIL) 300 Mg Capsule, 300 MG PO, CAPSULE 11/05/14 Multivitamin (MULTIVITAMINS) 1 Each Tablet, 1 TAB PO DAILY, TAB 08/21/14 Discontinued Reported Medications Cholecalciferol (Vitamin D3) (VITAMIN D3) 50,000 Unit Capsule, 56028 UNIT PO QWEEK, CAPSULE 08/21/14 Discontinued Scripts Oxycodone Hcl/Acetaminophen (PERCOCET 5-325 MG TABLET) 1 Each Tablet, 1 EACH PO Q4H Y for PAIN, #16 TAB 0 Refills Prov:FELICITAS IVERSON MD 10/29/17 Past Medical/Surgical History Past medical history for Russell-en-Y gastric bypass 2014, history of cholecystectomy. History of H. pylori infection 3. (YUMIKO MASON MD) Hx Smoking: No Smoking Status: Never Smoker Hx Substance Use Disorder: No Hx Alcohol Use: Yes (YUMIKO MASON MD) Constitutional Vital Sign - Last 24 Hours 11/15/17 11/15/17 11/15/17 11/15/17 14:24 14:25 14:30 14:33 Temp 98.0 Pulse 61 59 Resp 15 B/P (MAP) 130/69 130/69 (89) 127/82 (97) Pulse Ox 97 98 O2 Delivery Room Air Room Air 11/15/17 11/15/17 11/15/17 11/15/17 15:00 15:03 15:30 15:33 Pulse 62 51 B/P (MAP) 115/81 (92) 116/75 (89) Pulse Ox 93 100 O2 Delivery Room Air Nasal Cannula O2 Flow Rate 2 11/15/17 11/15/17 15:48 16:00 Pulse 54 B/P (MAP) 117/73 (88) Pulse Ox 100 O2 Delivery Nasal Cannula O2 Flow Rate 2 (LAURORA,ADIS V DO) Physical Exam General Appearance: The patient is alert, has no immediate need for airway protection and no signs of toxicity. Eyes: Pupils equal and round no pallor or injection. ENT, Mouth: Mucous membranes are moist. Respiratory: There are no retractions, lungs are clear to auscultation. Cardiovascular: Regular rate and rhythm. Gastrointestinal: Abdomen is rigid for tenderness to the epigastric region without guarding or rebound tenderness. No lower quadrant tenderness elicited. Neurological: Awake and alert Skin: Warm and dry, no rashes. Musculoskeletal: Neck is supple non tender. Extremities are nontender, nonswollen and have full range of motion. (YUMIKO MASON MD) Medical Decision Making Data Points Result Diagram: 11/15/17 1448 11/15/17 1448 Laboratory Hematology Test 11/15/17 14:48 11/15/17 14:55 Red Blood Count 3.72 M/uL (4.17-5.56) Mean Corpuscular Volume 91.1 fL (80.0-96.0) Mean Corpuscular Hemoglobin 31.2 pg (26.0-33.0) Mean Corpuscular Hemoglobin Concent 34.2 g/dL (32.0-36.0) Red Cell Distribution Width 13.7 % (11.5-14.5) Mean Platelet Volume 8.1 fL (7.2-11.1) Neutrophils (%) (Auto) 54.8 % (39.4-72.5) Lymphocytes (%) (Auto) 36.5 % (17.6-49.6) Monocytes (%) (Auto) 5.5 % (4.1-12.4) Eosinophils (%) (Auto) 2.5 % (0.4-6.7) Basophils (%) (Auto) 0.7 % (0.3-1.4) Nucleated RBC Relative Count (auto) 0.0 /100WBC Neutrophils # (Auto) 2.7 K/uL (2.0-7.4) Lymphocytes # (Auto) 1.8 K/uL (1.3-3.6) Monocytes # (Auto) 0.3 K/uL (0.3-1.0) Eosinophils # (Auto) 0.1 K/uL (0.0-0.5) Basophils # (Auto) 0.0 K/uL (0.0-0.1) Nucleated RBC Absolute Count (auto) 0.00 K/uL Urine HCG, Qualitative Negative (NEGATIVE) Sodium Level 140 mmol/L (137-145) Potassium Level 3.4 mmol/L (3.5-5.0) Chloride Level 108 mmol/L (98-107) Carbon Dioxide Level 23 mmol/L (22-31) Blood Urea Nitrogen 10 mg/dl (7-18) Creatinine 0.60 mg/dl (0.52-1.04) Glomerular Filtration Rate Calc > 60.0 Random Glucose 83 mg/dl (75-110) Calcium Level 9.1 mg/dl (8.4-10.2) Total Bilirubin 0.3 mg/dl (0.2-1.3) Aspartate Amino Transf (AST/SGOT) 30 U/L (0-35) Alanine Aminotransferase (ALT/SGPT) 37 U/L (0-56) Alkaline Phosphatase 40 U/L (0-126) Total Protein 6.8 g/dl (6.3-8.2) Albumin 4.3 g/dl (3.5-5.0) Lipase 108 U/L (23-300) Helicobacter pylori IgG Antibody Negative (NEGATIVE) Urine Color Yellow Urine Clarity Clear Urine pH 7.0 pH (4.8-9.5) Urine Specific [place] 1.010 Urine Protein Negative mg/dL (NEGATIVE) Urine Glucose (UA) Negative mg/dL (NEGATIVE) Urine Ketones Trace mg/dL (NEGATIVE) Urine Blood Negative (NEGATIVE) Urine Nitrite Negative (NEGATIVE) Urine Bilirubin Negative (NEGATIVE) Urine Urobilinogen Negative mg/dL (0.2-1.9) Urine Leukocyte Esterase Negative (NEGATIVE) Urine RBC None /HPF (0-2/HPF) Urine WBC 1 /HPF (0-5/HPF) Urine Squamous Epithelial Cells Many /LPF (</=FEW) Urine Bacteria Few /HPF (NONE-FEW) Urine Mucus None /HPF (NONE-FEW) Chemistry Test 11/15/17 14:48 11/15/17 14:55 White Blood Count 4.9 k/uL (4.5-11.0) Red Blood Count 3.72 M/uL (4.17-5.56) Hemoglobin 11.6 g/dL (12.0-16.0) Hematocrit 33.9 % (34.0-47.0) Mean Corpuscular Volume 91.1 fL (80.0-96.0) Mean Corpuscular Hemoglobin 31.2 pg (26.0-33.0) Mean Corpuscular Hemoglobin Concent 34.2 g/dL (32.0-36.0) Red Cell Distribution Width 13.7 % (11.5-14.5) Platelet Count 243 K/uL (150-450) Mean Platelet Volume 8.1 fL (7.2-11.1) Neutrophils (%) (Auto) 54.8 % (39.4-72.5) Lymphocytes (%) (Auto) 36.5 % (17.6-49.6) Monocytes (%) (Auto) 5.5 % (4.1-12.4) Eosinophils (%) (Auto) 2.5 % (0.4-6.7) Basophils (%) (Auto) 0.7 % (0.3-1.4) Nucleated RBC Relative Count (auto) 0.0 /100WBC Neutrophils # (Auto) 2.7 K/uL (2.0-7.4) Lymphocytes # (Auto) 1.8 K/uL (1.3-3.6) Monocytes # (Auto) 0.3 K/uL (0.3-1.0) Eosinophils # (Auto) 0.1 K/uL (0.0-0.5) Basophils # (Auto) 0.0 K/uL (0.0-0.1) Nucleated RBC Absolute Count (auto) 0.00 K/uL Urine HCG, Qualitative Negative (NEGATIVE) Glomerular Filtration Rate Calc > 60.0 Calcium Level 9.1 mg/dl (8.4-10.2) Total Bilirubin 0.3 mg/dl (0.2-1.3) Aspartate Amino Transf (AST/SGOT) 30 U/L (0-35) Alanine Aminotransferase (ALT/SGPT) 37 U/L (0-56) Alkaline Phosphatase 40 U/L (0-126) Total Protein 6.8 g/dl (6.3-8.2) Albumin 4.3 g/dl (3.5-5.0) Lipase 108 U/L (23-300) Helicobacter pylori IgG Antibody Negative (NEGATIVE) Urine Color Yellow Urine Clarity Clear Urine pH 7.0 pH (4.8-9.5) Urine Specific [place] 1.010 Urine Protein Negative mg/dL (NEGATIVE) Urine Glucose (UA) Negative mg/dL (NEGATIVE) Urine Ketones Trace mg/dL (NEGATIVE) Urine Blood Negative (NEGATIVE) Urine Nitrite Negative (NEGATIVE) Urine Bilirubin Negative (NEGATIVE) Urine Urobilinogen Negative mg/dL (0.2-1.9) Urine Leukocyte Esterase Negative (NEGATIVE) Urine RBC None /HPF (0-2/HPF) Urine WBC 1 /HPF (0-5/HPF) Urine Squamous Epithelial Cells Many /LPF (</=FEW) Urine Bacteria Few /HPF (NONE-FEW) Urine Mucus None /HPF (NONE-FEW) Urinalysis Test 11/15/17 14:48 11/15/17 14:55 Urine HCG, Qualitative Negative (NEGATIVE) Urine Color Yellow Urine Clarity Clear Urine pH 7.0 pH (4.8-9.5) Urine Specific [place] 1.010 Urine Protein Negative mg/dL (NEGATIVE) Urine Glucose (UA) Negative mg/dL (NEGATIVE) Urine Ketones Trace mg/dL (NEGATIVE) Urine Blood Negative (NEGATIVE) Urine Nitrite Negative (NEGATIVE) Urine Bilirubin Negative (NEGATIVE) Urine Urobilinogen Negative mg/dL (0.2-1.9) Urine Leukocyte Esterase Negative (NEGATIVE) Urine RBC None /HPF (0-2/HPF) Urine WBC 1 /HPF (0-5/HPF) Urine Squamous Epithelial Cells Many /LPF (</=FEW) Urine Bacteria Few /HPF (NONE-FEW) Urine Mucus None /HPF (NONE-FEW) (ADIS TRAN DO) ED Course/Re-evaluation Clinical Indication for ER IV: IV Access ED Course 11/15/2017 2:41:47 pm patient with severe epigastric abdominal pain which has been recurrent for this patient. She had recently been seen in the emergency department and then in follow-up by general surgery on 11/02/2017. The note from that visit was reviewed. Plan at this time will be abdominal workup including H. pylori screen. We will place the patient and make her nothing by mouth. We'll give IV fluid bolus along with 50 g of fentanyl and 4 of Zofran and Protonix 40 mg. We'll perform acute abdominal series looking for overt signs of free intraperitoneal air. Patient is had multiple CT scans so do not feel this will add any useful information at this time. Likely patient requires pain control and follow-up with Dr. Velasquez this Wednesday schedule further endoscopy. Decision to Disposition Date: Nov 15, 2017 Decision to Disposition Time: 17:00 (YUMIKO MASON MD) ED Course 11/15/2017 4:45:58 pm Pts labs are stable and Imaging does not show any sign of perforation. Pts blood work was stable. PT states her pain was improving with the fentanyl but now returning. will remedicate. Pt states that she is currently taking protonix once a day and carafate prior to each meal, three time a day. PT is on carafate pill. I suggest pt make a slurry by crushing the pill with two tablespoons of water and then drinking it. Pt also can increase her carafate to qid. will also prescribe percocet for break thru pain. PT has an appt with Dr. Velasquez Wednesday. Decision to Disposition Date: Nov 15, 2017 Decision to Disposition Time: 16:50 (ADIS TRAN DO) Depart Departure Latest Vital Signs Vital Signs Date Time Temp Pulse Resp B/P (MAP) Pulse Ox O2 Delivery O2 Flow Rate FiO2 11/15/17 16:00 117/73 (88) 11/15/17 15:48 54 100 Nasal Cannula 2 11/15/17 14:24 98.0 15 (ADIS TARN DO) Impression: Primary Impression: Epigastric abdominal pain Condition: Improved Disposition: HOME OR SELF-CARE Referrals: ADRIAN DEAN APRN TALENT MANAGER-C (PCP) JOSÉ MIGUEL RODRIGUEZ MD as scheduled on Wednesday New Scripts Oxycodone Hcl/Acetaminophen (OXYCODONE-ACETAMINOPHEN 5-325) 1 Each Tablet 1 EACH PO Q4-6H Y for PAIN, #20 TAB Prov: ADIS TRAN DO 11/15/17 Patient Instructions: Diet for Stomach Ulcers and Gastritis (GEN), Gastritis ( GEN) Additional Instructions: Follow up with Dr. Rodriguez on Wednesday. Continue your Protonix daily. You can increase your Carafate to 4 times a day. 1 pill 1 hour prior to each meal and 1 pill prior to bed time. You may want to try making your carafate pill into a liquid slurry. You can take the pill and smash it into 1-2 tablespoons of water and drink it. Some people find the liquid works better/faster for pain control. Percocet one every 4 hours as needed for pain. Return as needed. YUMIKO MASON MD Nov 15, 2017 14:19 ADIS TRAN DO Nov 15, 2017 16:55
[2017-11-15] MEDS ORDERED: CHOL10005 PO (14:32)
[2017-11-15] MEDS ORDERED: NS(*) 0.9% 1000 ML BAG 1,000 ML IV ONE (14:38)
[2017-11-15] MEDS ORDERED: PANTOPRAZOLE SOD 40 MG IV VIAL IVP ONE (14:40)
[2017-11-15] MEDS ORDERED: ONDANSETRON 4 MG/2 ML VIAL IVP ONE (14:40)
[2017-11-15] MEDS ORDERED: fentaNYL CITR 100 MCG/2 ML AMP IVP ONE ×2 (14:40→16:45)
[2017-11-15 15:02] LABS: PLATELET COUNT, AUTOMATED 243 K/uL (150-450)
[2017-11-15] MEDS ORDERED: MAG HYD/AL HYD/SIMETH 30ML UDC PO ONE (15:05)
--- NOTE | 2017-11-15 16:09 | RADIOLOGY IMAGING REPORT ---
FACILITY: [facility] PATIENT NAME: Darleen Campos : 1980 MR: [id number] V: [id number] EXAM DATE: ORDERING PHYSICIAN: YUMIKO MASON TECHNOLOGIST: Location: [facility] - [place] Patient: Darleen Campos : 1980 Visit/Account:[id number] Date of Sevice: 11/15/2017 Abdominal series with single view of the chest: 11/15/2017 2:38 PM HISTORY: Abdominal pain. COMPARISON: 02/26/2017. FINDINGS: Some stool seen throughout colon. Bowel gas pattern is nonobstructed and nondilated. Abdom inal soft tissues grossly normal without suspicious lucencies or abnormal calcifications. Surgical dolan tures and clips are seen in abdomen. No acute bony abnormality. Lungs show no consolidation, pleural effusion or pneumothorax. No nodule. Cardiomediastinal silhouet te and pulmonary vessels within normal limits. No acute bony normality. IMPRESSION: 1. Unremarkable exam of the abdomen. 2. No acute cardiopulmonary process. Report Dictated By: Florin Urban at 11/15/2017 4:02 PM Report E-Signed By: Florin Urban at 11/15/2017 4:04 PM WSN:[id number]
[2017-11-15 16:30] VITALS: BP 114/67
[2017-11-15] MEDS ORDERED: OXYC-373 PO (16:51)
== END 2017-11-15 17:15 | disposition home or self-care (01) ==
LOC: ER 14:46
DX: R10.13 Epigastric pain (principal)
CPT/HCPCS: 74022; 81001; 81025; 83690; 85025; 86677; 96361; 96374; 96375; 96376; 99284; C9113; J2405; J3010; J7030; 82040; 82247; 82310; 82374; 82435; 82565; 82947; 84075; 84132; 84155; 84295; 84450; 84460; 84520

== ENCOUNTER → 2017-11-23 | Outpatient (CLI) | payer MEDICAID ==
[~2017-11-23] MED LIST changes: +BARIUM SULFATE 176 GM BTL PO ONE; +BARIUM SULFATE 340 GM POWD ONE; +CHOL10005 PO
--- NOTE | 2017-11-23 11:51 | RADIOLOGY IMAGING REPORT ---
FACILITY: [facility] - [place] PATIENT NAME: Darleen Campos : 1980 MR: [id number] V: [id number] EXAM DATE: ORDERING PHYSICIAN: JOSÉ MIGUEL RODRIGUEZ TECHNOLOGIST: Location: [facility] - [place] Patient: Darleen Campos : 1980 Visit/Account:[id number] Date of Sevice: 11/23/2017 Examination: Upper gastrointestinal exam with small bowel follow-through HISTORY: Intermittent severe abdominal pain. Prior gastric bypass in 2014. TECHNIQUE: Initial overhead tea blender images were obtained. The patient was then given thin and thick barium to dri nk. Single column and air contrast views were obtained of the esophagus, stomach and the small bowel loops just distal to the anastomosis. Patient was given additional thin barium to drink and overhea d images were obtained through 60 minutes. Spot images were obtained of the small bowel at that time . Fluoroscopy time measured 3.2 minutes with a dose area product of 2294.94uGy*m2. FINDINGS: The tea blender images demonstrate a normal intestinal bowel gas pattern. Moderate amount stool is seen wi thin the right colon and transverse colon. Surgical clips noted in the right upper quadrant. Esophagus is normal in caliber. No mucosal filling defect or ulceration was identified. There was n ormal esophageal motility observed. There was a small gastric remnant seen within the upper abdomen in keeping with the gastric bypass pr ocedure. There was normal emptying of the gastric remnant into the small bowel. No ulceration or fi lling defect is seen within the gastric remnant. A tiny sliding-type hiatal hernia was seen intermit tently. There is normal transit of barium through the small bowel which is seen within the colon at 60 minute s. The small bowel loops are normal in caliber. No fold abnormality is identified. No abnormality seen in the region of the terminal ileum. Cecum appears superiorly located in the right upper abdome n, a normal variation. With Valsalva maneuver, there was a single episode of gastroesophageal reflux. This was asymptomatic . IMPRESSION: 1. Normal esophagus. 2. Expected postoperative changes after gastric bypass procedure. 3. Normal small bowel exam. 4. Tiny sliding-type hiatal hernia seen intermittently during the exam. 5. Single episode of gastroesophageal reflux into the distal esophagus. Report Dictated By: Homer Mercer at 11/23/2017 11:39 AM Report E-Signed By: Homer Mercer at 11/23/2017 11:47 AM JUNIORN:[email or web address]
== END ==
LOC: RAD 03:32
PROVIDERS: ATTEND Surgery
DX: K44.9 Diaphragmatic hernia without obstruction or gangrene (principal); K21.9 Gastro-esophageal reflux disease without esophagitis
CPT/HCPCS: 74245

== ENCOUNTER 2018-05-09 08:36 | Emergency (ER) | payer OTHER ==
[~2018-05-09 08:36] MED LIST changes: -LOR5/325 PO
[2018-05-09] MEDS ORDERED: MORPHINE 4 MG/ML SDV IVP ONE (09:00)
--- NOTE | 2018-05-09 09:34 | ER Report ---
History and Physical Time Seen By MD: 08:44 Hx. of Stated Complaint: left knee pain HPI/ROS CHIEF COMPLAINT: Knee pain HISTORY OF PRESENT ILLNESS:Patient is a 37-year-old female who states that he slipped and fell while leaving work going up stairs hitting her left knee and right knee. His having severe pain. Patient was brought in by ambulance because inability to ambulate. She was given 50 g of fentanyl prior to arrival. Current pain is 5 out of 10 in intensity. Patient states hurts to to bear weight or to extend the knee. REVIEW OF SYSTEMS: Constitutional: No fever, no chills. Eyes: No discharge. ENT: No sore throat. Cardiovascular: No chest pain, no palpitations. Respiratory: No cough, no shortness of breath. Allergies: Coded Allergies: sumatriptan (Verified Allergy, Intermediate, 05/09/18) adhesive (Verified Allergy, Mild, BLISTERING, 05/09/18) hydrocodone (Verified Adverse Reaction, Mild, VOMITS AND PASSES OUT, 05/09/18) Home Meds Active Scripts Hydrocodone Bit/Acetaminophen (HYDROCODON-ACETAMINOPHEN 5-325) 1 Each Tablet, 1 EACH PO Q4H PRN for PAIN, #12 TAB 0 Refills TAKE ONE TABLET BY MOUTH EVERY 4-6 HOURS NEEDED FOR PAIN Prov:YUMIKO MASON MD 05/09/18 Levothyroxine Sodium (LEVOTHYROXINE SODIUM) 50 Mcg Tablet, 1 TAB PO QDAY, #90 TAB 0 Refills Prov:ADRIAN DEAN APRN 03/08/18 Dicyclomine Hcl (DICYCLOMINE HCL) 10 Mg Capsule, 1 CAP PO QID PRN for abdominal cramping, #120 CAPSULE 0 Refills Prov:ADRIAN DEAN APRN 01/03/18 [Dietary Restrictions] No Conflict Check Prov:ADRIAN DEAN APRN 09/13/17 Reported Medications Cholecalciferol (Vitamin D3) (VITAMIN D3) 1,000 Unit Tablet, 1000 UNIT PO BID, TAB 11/15/17 Thiamine Hcl (VITAMIN B-1) 250 Mg Tablet, 1 TAB PO DAILY 04/23/17 Melatonin (Melatonin) 5 Mg Tab.ir.er 03/16/17 Folic Acid (FOLIC ACID) Unknown Strength Capsule, 800 MG PO QDAY, CAPSULE 02/22/17 Psyllium Husk (FIBER) 0.52 Gm Capsule, 0.52 GM PO, CAPSULE 07/02/16 Iron Polysaccharides Complex (POLYSACCHARIDE IRON 150) 150 Mg Capsule, 130 MG PO, CAPSULE 2 65MG TABS/DAY 07/02/16 Biotin (Biotin) 1,000 Mcg Tab.chew 10/02/15 Calcium Carb&Cit/Mag12/Vit D3 (CALCIUM 500 MG TABLET) 1 Each Tablet, 2 EACH PO 10/02/15 [B-12 Injection] No Conflict Check, every month 10/02/15 Elizabeth-3 Fatty Acids (FISH OIL) 300 Mg Capsule, 1200 MG PO TID, CAPSULE TAKE 4 CAPSULES 3 TIMES DAILY 11/05/14 Multivitamin (MULTIVITAMINS) 1 Each Tablet, 1 TAB PO DAILY, TAB 08/21/14 Discontinued Scripts Hyoscyamine Sulfate (HYOSCYAMINE SULFATE) 0.125 Mg Tab.rapdis, 1-2 TAB.BRIEN PO Q6H PRN for PAIN, #20 TAB.BRIEN 0 Refills Take 1-2 tablets up to 4 times a day for left upper abdominal pain, start with 1 tablet at a time. Prov:JOSÉ MIGUEL RODRIGUEZ MD 01/11/18 Promethazine Hcl (PROMETHAZINE HCL) 25 Mg Tablet, 25 MG PO Q8H PRN for NAUSEA/VOMITING, #60 TAB 0 Refills Prov:ADRIAN DEAN APRN VEGETABLE CANNER-C 01/03/18 Sucralfate (CARAFATE) 1 Gm Tablet, 1 TAB PO TID, #100 TAB 3 Refills Take 1 tablet 30 minutes before eating Prov:JOSÉ MIGUEL RODRIGUEZ MD 11/02/17 Pantoprazole Sodium (PANTOPRAZOLE SODIUM) 40 Mg Tablet.dr, 1 TAB PO DAILY, #30 TAB 3 Refills Prov:JOSÉ MIGUEL RODRIGUEZ MD 11/02/17 Hx Smoking: No Smoking Status: Never Smoker Hx Substance Use Disorder: No Hx Alcohol Use: Yes Constitutional Vital Sign - Last 24 Hours 05/09/18 05/09/18 05/09/18 05/09/18 08:36 08:37 08:40 09:00 Temp 98.0 Pulse 68 62 Resp 15 B/P (MAP) 141/90 (107) 141/90 135/97 (110) Pulse Ox 100 95 O2 Delivery Nasal Cannula Room Air O2 Flow Rate 2 05/09/18 05/09/18 05/09/18 05/09/18 09:06 09:30 09:36 09:41 Pulse 61 79 66 B/P (MAP) 132/82 (99) Pulse Ox 100 100 100 O2 Delivery Nasal Cannula Nasal Cannula O2 Flow Rate 2 2 05/09/18 10:00 B/P (MAP) 127/78 (94) Physical Exam General appearance: Alert but appears uncomfortable Leftt knee: There is no significant swelling. There is no effusion. There is a superficial abrasion to the left knee. There is no obvious deformity of the knee. There is severe tenderness to the patella. It is no obvious deformity to the patella The joint is stable with no comparable ligamentous laxity to the knee. There is no tenderness proximal or distal to the knee. Patient does have a superficial abrasion to the left knee. No primary repair will be required however local wound care will be performed Neurologic exam: The patient has normal sensation distal to the injury. Vascular exam: Normal pulses and capillary refill in the foot DIFFERENTIAL DIAGNOSIS: After history and physical exam differential diagnosis was considered for knee injury including sprain, fracture, meniscus injury and soft tissue injury. Medical Decision Making EKG/Imaging Imaging [facility] PATIENT NAME: Darleen Campos : 1980 MR: [id number] V: [id number] EXAM DATE: ORDERING PHYSICIAN: YUMIKO MASON TECHNOLOGIST: Location: [facility] - [place] Patient: Darleen Campos : 1980 Visit/Account:[id number] Date of Sevice: 05/09/2018 EXAMINATION: Left knee radiographs HISTORY: Fall COMPARISON: None. FINDINGS: Frontal, oblique, lateral and sunrise views obtained. Bones: Normal. Joint spaces: Normal. Alignment: Normal. Soft tissues: Normal. Effusion: Trace joint effusion. IMPRESSION: No fracture or malalignment. Trace joint effusion. Report Dictated By: Melo Ruff MD at 05/09/2018 9:26 AM Report E-Signed By: Melo Ruff MD at 05/09/2018 9:27 AM WSN:[email or web address] ED Course/Re-evaluation ED Course Plan at this time will be x-ray of the left knee. We'll give pain medication; disposition pending imaging studies. The abrasion to the left knee does not require primary repair only local topical antibiotic. Decision to Disposition Date: May 09, 2018 Decision to Disposition Time: 09:59 Depart Departure Latest Vital Signs Vital Signs Date Time Temp Pulse Resp B/P (MAP) Pulse Ox O2 Delivery O2 Flow Rate FiO2 05/09/18 10:00 127/78 (94) 05/09/18 09:41 66 100 05/09/18 09:36 Nasal Cannula 2 05/09/18 08:40 98.0 15 Impression: Primary Impression: Knee pain, acute Condition: Improved Disposition: HOME OR SELF-CARE Referrals: ADRIAN DEAN APRNP-C (PCP) [facility] follow up in 7 days if symptoms persist New Scripts Hydrocodone Bit/Acetaminophen (HYDROCODON-ACETAMINOPHEN 5-325) 1 Each Tablet 1 EACH PO Q4H PRN for PAIN, #12 TAB 0 Refills TAKE ONE TABLET BY MOUTH EVERY 4-6 HOURS NEEDED FOR PAIN Prov: YUMIKO MASON MD 05/09/18 Patient Instructions: Abrasion (GEN), Knee Sprain (ED), Knee Sprain Exercises (GEN) Additional Instructions: Bacitracin or Neosporin to the ear abrasion to the left knee 2-3 times per day for the next 5 days. Return to the emergency department for worsening pain to the knee, extending redness from the wound or fever. Problem Qualifiers Primary Impression: Knee pain, acute Laterality: left Qualified Codes: M25.562 - Pain in left knee YUMIKO MASON MD May 09, 2018 09:34
[2018-05-09] MEDS ORDERED: ONDANSETRON 4 MG/2 ML VIAL IVP ONE (09:35)
[2018-05-09] MEDS ORDERED: LORazepam 2 MG/ML VIAL IVP ONE (09:35)
--- NOTE | 2018-05-09 09:36 | RADIOLOGY IMAGING REPORT ---
FACILITY: [facility] PATIENT NAME: Darleen Campos : 1980 MR: [id number] V: [id number] EXAM DATE: ORDERING PHYSICIAN: YUMIKO MASON TECHNOLOGIST: Location: [facility] Patient: Darleen Campos : 1980 Visit/Account:[id number] Date of Sevice: 05/09/2018 EXAMINATION: Left knee radiographs HISTORY: Fall COMPARISON: None. FINDINGS: Frontal, oblique, lateral and sunrise views obtained. Bones: Normal. Joint spaces: Normal. Alignment: Normal. Soft tissues: Normal. Effusion: Trace joint effusion. IMPRESSION: No fracture or malalignment. Trace joint effusion. Report Dictated By: Melo Ruff MD at 05/09/2018 9:26 AM Report E-Signed By: Melo Ruff MD at 05/09/2018 9:27 AM WSN:[id number]
[2018-05-09] MEDS ORDERED: LOR5/325 PO (09:56)
[2018-05-09 10:00] VITALS: BP 127/78
== END 2018-05-09 10:49 | disposition home or self-care (01) ==
LOC: ER 08:53
DX: M25.562 Pain in left knee (principal); S80.212A Abrasion, left knee, initial encounter
CPT/HCPCS: 73564; 96374; 96375; 99284; J2060; J2270; J2405

== ENCOUNTER → 2018-05-09 | Outpatient (CLI) | payer OTHER ==
[~2018-05-09] MED LIST changes: -BARIUM SULFATE 176 GM BTL PO ONE; -BARIUM SULFATE 340 GM POWD ONE; +HYOS0.128 PO; +LOR5/325 PO
== END ==
LOC: AMB 08:10
PROVIDERS: ATTEND Nurse Practitioner
DX: M25.562 Pain in left knee (principal); S81.012A Laceration without foreign body, left knee, initial encounter; W10.9XXA Fall (on) (from) unspecified stairs and steps, initial encounter
CPT/HCPCS: A0425; A0427